=== PATIENT | male | born 1960 | race Caucasian/White ===

== ENCOUNTER → 2016-06-04 | Outpatient (CLI) | payer OTHER, BC ==
--- NOTE | 2016-06-04 16:20 | MR ---
EXAMINATION: MRI cervical spine HISTORY: Osteochondrosis COMPARISON: None TECHNIQUE: Multiplanar and multisequence images obtained of the cervical spine without contrast. Cor onal and sagittal reconstructions obtained. FINDINGS: The cervical spinal alignment appears normal. The vertebral body heights appear well maint ained. There is no suspicious bone marrow signal changes identified. The cervical spinal cord signal is normal. The visualized intracranial components appear normal. C2-C3: Unremarkable. C3-C4: Tiny diffuse disc bulge without significant spinal canal stenosis. No significant neural fora neena stenosis. C4-C5: Unremarkable. C5-C6: Mild bilateral uncovertebral hypertrophy with mild bilateral neural foraminal stenosis. Trace diffuse disc bulge without significant spinal canal stenosis. C6-C7: Unremarkable. C7-T1: Unremarkable. IMPRESSION: 1. Mild multilevel degenerative changes with individual details above.
--- NOTE | 2016-06-05 08:59 | CT ---
EXAMINATION: CT left elbow HISTORY: Foreign body COMPARISON: None TECHNIQUE: Axial CT images obtained through the left elbow without contrast. Coronal and sagittal re constructions obtained. FINDINGS: There is new 1.4 x 0.5 cm ossific density within the joint space medial and posterior to the radiocapitellar articulation. There is as well corticated with an uncertain donor site likely se condary to a remote injury. Early osteophytic changes are noted at the radiocapitellar joint. The me dial joint space appears preserved. Otherwise bone mineralization appears normal. No fracture or acu te osseous abnormality. No joint effusion. Adjacent soft tissues appear normal. IMPRESSION: 1. There is a 1.4 x 0.5 cm ossific density within the posterior joint space of the elbow, possibly f rom a remote injury. 2. Otherwise mild degenerative changes along the radiocapitellar articulation.
== END ==
LOC: MW.MRI 09:57
DX: M42.12 Adult osteochondrosis of spine, cervical region (principal); M48.02 Spinal stenosis, cervical region; M50.20 Other cervical disc displacement, unspecified cervical region; M25.522 Pain in left elbow
CPT/HCPCS: 72141; 72141-26; 73200-26-LT; 73200-LT

== ENCOUNTER 2021-09-15 06:28 | Day surgery (SDC) | payer OTHER ==
[~2021-09-15 06:28] MED LIST: Lactated Ringers 1,000 ML IV SCH
[2021-09-15] MEDS ORDERED: fentaNYL 100 MCG/2 ML SDV ONE (07:07)
[2021-09-15] MEDS ORDERED: Propofol 200 MG/20 ML SDV ONE (07:07)
[2021-09-15] MEDS ORDERED: Midazolam 1 MG/ML 2 ML SDV ONE (07:07)
[2021-09-15] MEDS ORDERED: Ondansetron 4 MG/2 ML SDV ONE (07:07)
== END 2021-09-15 09:16 | disposition home or self-care (01) ==
LOC: MW.SDS 06:28
PROVIDERS: ATTEND Surgery
DX: Z12.11 Encounter for screening for malignant neoplasm of colon (principal); D12.6 Benign neoplasm of colon, unspecified; K64.4 Residual hemorrhoidal skin tags; E03.9 Hypothyroidism, unspecified; E78.00 Pure hypercholesterolemia, unspecified; E55.9 Vitamin D deficiency, unspecified; Z79.890 Hormone replacement therapy; Z79.899 Other long term (current) drug therapy; Z90.49 Acquired absence of other specified parts of digestive tract; Z87.891 Personal history of nicotine dependence
CPT/HCPCS: 45380; J2250; J2405; J2704; J3010; J7120; 00812